=== PATIENT | male | born 1990 | race Hispanic/Latino ===

== ENCOUNTER → 2021-10-02 | Outpatient (CLI) | payer OTHER | END | disposition home or self-care (01) | LOC: RAH 12:52 | PROVIDERS: ATTEND Family Medicine | DX: S83.282A Other tear of lateral meniscus, current injury, left knee, initial encounter (principal); M23.301 Other meniscus derangements, unspecified lateral meniscus, left knee; X58.XXXA Exposure to other specified factors, initial encounter; Y93.89 Activity, other specified; Y92.89 Other specified places as the place of occurrence of the external cause; Y99.8 Other external cause status | CPT/HCPCS: 73721 ==